=== PATIENT | female | born 2000 | race Caucasian/White ===

== ENCOUNTER 2018-08-08 10:39 | Emergency (ER) | payer SELFPAY ==
[~2018-08-08] VITALS: Ht 157.5 cm; Wt 51.3 kg
[2018-08-08 11:03] VITALS: BP 111/63
--- NOTE | 2018-08-08 11:09 | NUR ---
WHEELCHAIR ASSISTED TO LOBBY, VSS.
--- NOTE | 2018-08-08 11:53 | NUR ---
PATIENT WHEELCHAIR ASSSITED TO BED 9
--- NOTE | 2018-08-08 11:58 | NUR ---
18 Y/O F PRESENTS TO THE ED W/C/O R ANKLE PAIN S/P FALL ON THE STAIRS X 1 HOUR AGO. PT STATES SHE FELT IT ROLL AND MAKE A CRACKING NOISE. NO OBVIOUS DEFORMATIES NOTED. -ERYTHEMA. -SWELLING. +CMS. CAP REFILL <3. SKIN IS INTACT, PINK/WARM/DRY; AAOX4, PERRL ; LUNGS CLEAR BL, BREATHING UNLABORED; HR EVEN AND REGULAR, BL PERIPHERAL PULSES PRESENT; PT DENIES ANY FEVER, CP, SOB, OR COUGH AT THIS TIME; PT STATES 10/10 PAIN AT THIS TIME; VSS; PATIENT POSITIONED FOR COMFORT; HOB ELEVATED; BEDRAILS UP X2; BED DOWN.
--- NOTE | 2018-08-08 12:00 | NUR ---
X-RAY AT BEDSIDE.
[2018-08-08] MEDS ORDERED: KETOROLAC 60 MG/2 ML VIAL IM ONE (13:05)
--- NOTE | 2018-08-08 13:25 | NUR ---
Patient discharged with v/s stable. Written and verbal after care instructions given and explained. Patient alert, oriented and verbalized understanding of instructions. Ambulatory to home. All questions addressed prior to discharge. ID band removed. Patient advised to follow up with PMD. Rx of MOTRIN given. Patient educated on indication of medication including possible reaction and side effects. Opportunity to ask questions provided and answered.
[2018-08-08 13:26] VITALS: BP 111/63
== END 2018-08-08 13:25 | disposition home or self-care (01) ==
LOC: MED 10:39
DX: S90.31XA Contusion of right foot, initial encounter (principal); W18.49XA Other slipping, tripping and stumbling without falling, initial encounter; Y93.89 Activity, other specified; Y92.89 Other specified places as the place of occurrence of the external cause; Y99.8 Other external cause status
CPT/HCPCS: 73610; 73630; 96372; 99283; J1885; Q0092

== ENCOUNTER 2019-01-07 13:48 | Emergency (ER) | payer OTHER ==
[~2019-01-07] VITALS: Ht 160 cm; Wt 54.0 kg
[2019-01-07 13:55] VITALS: BP 118/71
[2019-01-07 15:56] LABS: BASOPHILS % (AUTO) 0.4 % (0.0-2.0); EOSINOPHILS # (AUTO) 0.1 K/uL (0-0.4); EOSINOPHILS % (AUTO) 1.2 % (0.0-4.0); HEMATOCRIT 38.7 % (36-48); HEMOGLOBIN 12.5 g/dL (12.0-16.0); LYMPHOCYTES # (AUTO) 1.7 K/uL (2.5-16.5); MEAN CORPUSCULAR HEMOGLOBIN 27 pg (27-31); MEAN CORPUSCULAR HGB CONC 32 g/dL (33-37); MONOCYTES # (AUTO) 0.6 K/uL (0.8-1.0); NEUTROPHILS # (AUTO) 6.3 K/uL (1.8-7.7); NEUTROPHILS % (AUTO) 72.4 % (42.2-75.2); PLATELET COUNT (AUTO) 151 K/uL (140-450); RED BLOOD CELL COUNT(AUTO) 4.67 MIL/uL (4.20-5.40); RED CELL DISTRIBUTION WIDTH 13.1 % (11.6-13.7); WHITE BLOOD COUNT (AUTO) 8.7 K/uL (4.5-11.0)
--- NOTE | 2019-01-07 16:00 | NUR ---
PT PRESENTS TO ED WITH C/O RLQ ABD PAIN X 1 DAY. DENIES N/V/D OR FEVER; AFEBRILE AT THIS TIME. DENIES PMH. VSS. ERMD TO EVALUATE PT.
[2019-01-07 16:46] VITALS: BP 118/72
--- NOTE | 2019-01-07 16:47 | NUR ---
Patient discharged with v/s stable. Written and verbal after care instructions given and explained. Patient alert, oriented and verbalized understanding of instructions. Ambulatory with steady gait. All questions addressed prior to discharge. ID band removed. Patient advised to follow up with PMD. Rx of Mineral oil and Miralax given. Patient educated on indication of medication including possible reaction and side effects. Opportunity to ask questions provided and answered.
== END 2019-01-07 16:47 | disposition home or self-care (01) ==
LOC: MED 13:48
DX: R10.31 Right lower quadrant pain (principal)
CPT/HCPCS: 36415; 74022; 81002; 81025; 85025; 99284

== ENCOUNTER 2019-07-24 14:59 | Emergency (ER) | payer OTHER ==
[~2019-07-24] VITALS: Ht 154.9 cm; Wt 51.3 kg
[2019-07-24 15:03] VITALS: BP 109/71
--- NOTE | 2019-07-24 15:08 | NUR ---
PT PROVIDED WITH URINE CUP AND WILL BE SENT TO LOBBY AFTER PROVIDING URINE SAMPLE.
--- NOTE | 2019-07-24 15:53 | NUR ---
Patient ambulated to bed 7
--- NOTE | 2019-07-24 16:19 | NUR ---
19 Y/O F C/O RT LOWER ABDOMINAL PAIN INTERMITENT X 1 DAY. PT DENIES PAIN AT THIS TIME. PT STATES SHE HAS HAD THIS PAIN PRIOR, WAS TOLD SHE HAS A CYST X1 YEAR AGO. PT DENIES N/V/D. PT ABDOMEN IS TENDER, NON PAINFUL TO TOUCH. BOWEL SOUNDS ACTIVE ALL FOUR QUADRANTS. PT POSITOINED FOR COMFORT, SIDE RAIL X [address] NKA
--- NOTE | 2019-07-24 16:22 | NUR ---
DR LOPES AT BEDSIDE EXAMINING PATIENT.
[2019-07-24] MEDS ORDERED: IBUPROFEN 600 MG TAB PO ONE (16:35)
[2019-07-24] MEDS ORDERED: ACETAMINOPHEN 325 MG TAB PO ONE (16:35)
[2019-07-24 16:49] LABS: BASOPHILS % (AUTO) 0.5 % (0.0-2.0); EOSINOPHILS % (AUTO) 0.6 % (0.0-4.0); HEMATOCRIT 40.5 % (36-48); LYMPHOCYTES # (AUTO) 1.4 K/uL (2.5-16.5); LYMPHOCYTES % (AUTO) 25.1 % (20.5-51.1); MEAN CORPUSCULAR HEMOGLOBIN 27 pg (27-31); MEAN CORPUSCULAR HGB CONC 32 g/dL (33-37); MEAN CORPUSCULAR VOLUME 83.3 fL (80-94); MONOCYTES # (AUTO) 0.4 K/uL (0.8-1.0); MONOCYTES % (AUTO) 7.3 % (1.7-9.3); NEUTROPHILS # (AUTO) 3.8 K/uL (1.8-7.7); NEUTROPHILS % (AUTO) 66.5 % (42.2-75.2); PLATELET COUNT (AUTO) 158 K/uL (140-450); RED BLOOD CELL COUNT(AUTO) 4.86 MIL/uL (4.20-5.40); RED CELL DISTRIBUTION WIDTH 13.5 % (11.6-13.7); WHITE BLOOD COUNT (AUTO) 5.8 K/uL (4.8-10.8)
[2019-07-24 16:51] LABS: APPEARANCE,URINE CLEAR (CLEAR); BILIRUBIN,URINE NEGATIVE (NEGATIVE); BLOOD, URINE NEGATIVE (NEGATIVE); COLOR,URINE YELLOW (YELLOW); LEUKOCYTE ESTERASE ,URINE NEGATIVE (NEGATIVE); NITRITE, URINE NEGATIVE (NEGATIVE); UGLUCOSE NEGATIVE (NEGATIVE)
--- NOTE | 2019-07-24 16:52 | NUR ---
PET TECHNOLOGIST AT BEDSIDE PERFORMING ORDERED TEST.
[2019-07-24 17:08] LABS: ANION GAP 18.8 (8-16); CARBON DIOXIDE 25.7 mmol/L (21-32); CREATININE 0.4 mg/dL (0.6-1.3); POTASSIUM 4.5 mmol/L (3.5-5.1)
[2019-07-24 18:55] VITALS: BP 109/71
--- NOTE | 2019-07-24 18:58 | NUR ---
Patient discharged with v/s stable. Written and verbal after care instructions given and explained. Patient alert, oriented and verbalized understanding of instructions. Ambulatory with steady gait. All questions addressed prior to discharge. ID band removed. Patient advised to follow up with PMD. Rx of TRAMADOL,MOTRIN given. Patient educated on indication of medication including possible reaction and side effects. Opportunity to ask questions provided and answered.
== END 2019-07-24 18:58 | disposition home or self-care (01) ==
LOC: MED 14:59
DX: R10.9 Unspecified abdominal pain (principal); N85.8 Other specified noninflammatory disorders of uterus
CPT/HCPCS: 36415; 76856; 80048; 81003; 81025; 85025; 99284; Q0092

== ENCOUNTER 2020-11-17 16:23 | Emergency (ER) | payer OTHER ==
[~2020-11-17] VITALS: Ht 154.9 cm; Wt 50.8 kg
[2020-11-17 16:26] VITALS: BP 101/65
--- NOTE | 2020-11-17 16:39 | NUR ---
20 Y/O FEMALE C/O RLQ ABD PAIN THAT RADIATES THROUGH LOWER ABD X 2 WKS. PT STATES C/O NAUSEA, VOMITING AND EPISODES OF DIARRHEA WELL CONSTIPATION. ABD SOFT NON TENDER. PT STATES INTERMITTENT SHARP 7/10 PAIN. MEDHX: CYST NKA
--- NOTE | 2020-11-17 16:57 | NUR ---
DR HUGO AT BEDSIDE EXAMINING PT
--- NOTE | 2020-11-17 17:17 | NUR ---
PT TAKEN TO XRAY VIA W/C
[2020-11-17 17:20] LABS: APPEARANCE,URINE CLEAR (CLEAR); BILIRUBIN,URINE NEGATIVE (NEGATIVE); BLOOD, URINE TRACE-I (NEGATIVE); COLOR,URINE YELLOW (YELLOW); LEUKOCYTE ESTERASE ,URINE NEGATIVE (NEGATIVE); NITRITE, URINE NEGATIVE (NEGATIVE); UGLUCOSE NEGATIVE (NEGATIVE)
--- NOTE | 2020-11-17 17:24 | NUR ---
PT RETURNED TO BED 06
--- NOTE | 2020-11-17 17:24 | NUR ---
ULTRASOUND AT BEDSIDE
[2020-11-17] MEDS ORDERED: MIRABULK PO (18:32)
[2020-11-17 18:40] VITALS: BP 101/65
== END 2020-11-17 18:40 | disposition home or self-care (01) ==
LOC: MED 16:23
DX: N83.202 Unspecified ovarian cyst, left side (principal); R19.7 Diarrhea, unspecified; K59.00 Constipation, unspecified; Z79.899 Other long term (current) drug therapy
CPT/HCPCS: 74021; 76856; 81003; 81025; 99285